=== PATIENT | female | born 1980 | race Caucasian/White ===

== ENCOUNTER 2020-04-21 12:34 | Emergency (ER) | payer MEDICAID ==
[~2020-04-21] VITALS: Ht 165.1 cm; Wt 90.7 kg
[2020-04-21 12:43] VITALS: BP 150/89
--- NOTE | 2020-04-21 12:47 | NUR ---
Patient ambulated to bed 07.
--- NOTE | 2020-04-21 13:10 | NUR ---
40 YO F C/O ABSCESS TO RIGHT BUTTOCK X 3 WEEKS. PER PT, ABSCESS TREATED WITH ANTIBIOTICS X 10 DAYS. PT COMPLETED 10-DAY COURSE, WHICH RESOLVED ABSCESS. 3 DAYS AGO, ABSCESS RECURRED. PAIN 10/10, SHARP. DENIES URINARY SYMPTOMS, DENIES FEVER. UPON ASSESSMENT, VSS. WITH REDNESS AND MILD SWELLING TO RIGHT INNER BUTTOCK; (+) ABSCESS DRAINING WHITISH PUS. PT CHANGED TO PT GOWN, POSITIONED COMFORTABLY IN BED WITH 1 SIDERAIL UP. ERMD MADE AWARE OF PT STATUS. PMH: DENIES NKA
[2020-04-21] MEDS: ONDANSETRON 4 MG ODT PO ONE (14:04)
[2020-04-21] MEDS: KETOROLAC 30 MG/ML VIAL IM ONE (14:04)
[2020-04-21] MEDS: HYDROcodone/APAP 7.5/325 MG 1 TAB PO ONE (14:04)
--- NOTE | 2020-04-21 14:53 | NUR ---
Patient discharged with v/s stable. Written and verbal after care instructions given and explained. Patient alert, oriented and verbalized understanding of instructions. Ambulatory with steady gait. All questions addressed prior to discharge. ID band removed. Patient advised to follow up with PMD. Rx of NORCO, KEFLEX, BACTRIM given. Patient educated on indication of medication including possible reaction and side effects. Opportunity to ask questions provided and answered.
[2020-04-21 14:54] VITALS: BP 150/89
== END 2020-04-21 14:53 | disposition home or self-care (01) ==
LOC: MED 12:34
DX: L02.31 Cutaneous abscess of buttock (principal); Z90.49 Acquired absence of other specified parts of digestive tract
CPT/HCPCS: 96372; 99284; J1885; Q0162